=== PATIENT | female | born 1960 | race Hispanic/Latino ===

== ENCOUNTER 2017-11-10 21:28 | Emergency (ER) | payer OTHER ==
[~2017-11-10] VITALS: Ht 147.3 cm; Wt 77.1 kg
[2017-11-10] MEDS ORDERED: CEFTRIAXONE SOD 1 GM VIAL IV ONE (22:00)
[2017-11-10] MEDS ORDERED: ACETAMINOPHEN 325 MG TAB PO ONE (22:00)
[2017-11-10] MEDS ORDERED: SODIUM CHLORIDE 0.9% 1000ML 1,000 ML IV ONE (22:00)
[2017-11-10 22:28] LABS: BASOPHILS % 0.3 % (0.0-1.0); EOSINOPHILS % 0.3 % (0.0-6.0); HEMATOCRIT 32.2 % (34.2-44.1); HEMOGLOBIN 10.8 g/dL (12.0-16.0); LYMPHOCYTES # (AUTO) 0.6 (1.0-3.2); LYMPHOCYTES % 8.2 % (18.0-39.1); MEAN CORPUSCULAR HEMOGLOBIN 28.2 pg (28-32); MEAN CORPUSCULAR HGB CONC 33.5 g/dL (31-35); MEAN CORPUSCULAR VOLUME 84.1 fL (81-99); MONOCYTES # (AUTO) 0.5 (0.2-0.8); MONOCYTES % 6.6 % (4.4-11.3); NEUTROPHILS # (AUTO) 6.5 (2.1-6.9); PLATELET COUNT 173 x10e3/uL (140-360); RED BLOOD COUNT 3.83 x10e6/uL (3.6-5.1); RED CELL DISTRIBUTION WIDTH 14.1 % (11.7-14.4)
[2017-11-10 22:34] LABS: BILIRUBIN,URINE 1+ (NEGATIVE); CLARITY,URINE HAZY (CLEAR); COLOR,URINE YELLOW (YELLOW); KETONES,URINE NEGATIVE (NEGATIVE); LEUKOCYTE ESTERASE ,URINE 1+ (NEGATIVE); URINE UROBILINOGEN 0.2 mg/dL (0.2 - 1)
[2017-11-10 22:36] LABS: NITRITE,URINE POSITIVE (NEGATIVE); PROTEIN,URINE DIPSTICK TRACE (NEGATIVE)
--- NOTE | 2017-11-10 22:48 | Diagnostic Imaging Report ---
CHEST SINGLE (NOT PORTABLE), 11/10/2017 9:59 PM Technique: CHEST SINGLE (NOT PORTABLE) Comparison: None available. Clinical history: Fever, cough Findings: Cardiomediastinal silhouette likely normal for technique. No consolidation or edema. No effusion or pneumothorax. Impression: 1. Lines/Tubes: None 2. No acute abnormality. Signed by: Dr Mima Silvestre MD on 11/10/2017 10:45 PM
[2017-11-10 22:55] LABS: BACTERIA,URINE MANY /HPF; EPITHELIAL CELLS,URINE RARE /LPF; RBC,URINE 0-5 /HPF (0-5); WBC,URINE (MAN) >50 /HPF (0-5)
[2017-11-10 22:57] LABS: ALBUMIN 3.5 g/dL (3.5-5.0); ALBUMIN/GLOBULIN RATIO 0.9 (0.8-2.0); ANION GAP 15.1 mmol/L (8-16); CALCIUM 9.3 mg/dL (8.4-10.2); CREATININE, SERUM 1.31 mg/dL (0.57-1.11); POTASSIUM 4.1 mmol/L (3.5-5.1)
[2017-11-11 00:20] VITALS: BP 131/57
[2017-11-12] MEDS ORDERED: NOVOLOG100 UNIT/1 SC (23:40)
[2017-11-12] MEDS ORDERED: METFORMIN HCL500 M2 PO (23:52)
[2017-11-12] MEDS ORDERED: GLIPIZIDE5 MG PO (23:57)
[2017-11-12] MEDS ORDERED: LOSARTAN-HCTZ1 EAC1 PO (23:57)
[2017-11-12] MEDS ORDERED: ATORVASTATIN CA20 MG PO (23:57)
[2017-11-12] MEDS ORDERED: GABAPENTIN300 MG PO (23:57)
[2017-11-12] MEDS ORDERED: OXYBUTYNIN CHLOR5 MG PO (23:57)
[2017-11-12] MEDS ORDERED: METOPROLOL SUCC50 MG PO (23:57)
[2017-11-12] MEDS ORDERED: AMLODIPINE BES2.5 MG PO (23:59)
== END 2017-11-11 01:08 | disposition home or self-care (01) ==
LOC: ER 21:28
DX: R50.9 Fever, unspecified (principal); R05 Cough; N30.90 Cystitis, unspecified without hematuria; I10 Essential (primary) hypertension; E11.9 Type 2 diabetes mellitus without complications
CPT/HCPCS: 36415; 71045; 80053; 81001; 83605; 85025; 87040; 87086; 87186; 99284; J0696; J7030

== ENCOUNTER 2017-11-12 14:27 | Inpatient (IN) | payer OTHER ==
[~2017-11-12] VITALS: Ht 147.3 cm; Wt 78.1 kg
--- OUTSIDE RECORDS SUMMARY | 2017-11-12 14:30 | XMS REPORT ---
[facility] Address Unknown Phone Unavailable Care Team Providers Care Adult Basic Education Manager Name Role Phone YUSUF ROSE Unavailable Unavailable Problems This patient has no known problems. Allergies, Adverse Reactions, Alerts This patient has no known allergies or adverse reactions. Medications This patient has no known medications. Results Test Description Test Time Test Comments Text Results Atomic Results Result Comments CHEST SINGLE (NOT PORTABLE) [place] [address] Patient Name: MENA HARDING MR #: [id number] : 1960 Age/Sex: 57/F Req #: [id number] Adm Physician: Ordered by: YUSUF ROSE MD Report #: [id number] Location: ER Room/Bed: ___ Procedure: [id number] DX/CHEST SINGLE (NOT PORTABLE) Exam Date: 11/10/17 Exam Time: 2202 REPORT STATUS: Signed CHEST SINGLE (NOT PORTABLE), 11/10/2017 9:59 PM Technique: CHEST SINGLE ( NOT PORTABLE) Comparison: None available. Clinical history: Fever, cough Findings: Cardiomediastinal silhouette likely normal for technique. No consolidation or edema. No effusion or pneumothorax. Impression: 1. Lines/Tubes: None 2. No acute abnormality. Signed by: Dr Prasad Silvestre MD on 11/10/2017 10:45 PM Dictated By: PRASAD SILVESTRE MD 44 Transcribed By: JUNE on 11/10 COPY TO: YUSUF ROSE MD
--- OUTSIDE RECORDS SUMMARY | 2017-11-12 14:30 | XMS REPORT | Clinical Summary ---
Author Author [facility] Organization [facility] Address Unknown Phone Unavailable Care Team Providers Care Umbrella Supervisor Name Role Phone PCP Unavailable Allergies Active Allergy Reactions Severity Noted Date Comments Codeine Nausea Only, Other (See 03/25/2016 " over sedated" Comments) Current Medications Prescription Sig. Disp. Refills Start End Date Status Date atorvastatin (LIPITOR) 40 Take 40 mg by mouth Active MG tablet daily. glipiZIDE (GLUCOTROL) 5 Take 5 mg by mouth 2 Active MG tablet (two) times daily before meals. metFORMIN (GLUCOPHAGE) Take 1,000 mg by mouth 2 Active 1000 MG tablet (two) times daily with breakfast and dinner. fenofibrate (TRICOR) 48 Take 48 mg by mouth Active MG tablet daily. amLODIPine (NORVASC) 2.5 Take 2.5 mg by mouth Active MG tablet daily. metoprolol (TOPROL-XL) 50 Take 50 mg by mouth Active MG 24 hr tablet daily. losartan-hydrochlorothiaz Take 1 tablet by mouth Active etta (HYZAAR) 100-25 mg daily. per tablet traMADol (ULTRAM) 50 mg Take 50 mg by mouth every Active tablet 6 (six) hours as needed for Pain. ibuprofen (ADVIL,MOTRIN) Take 600 mg by mouth Active 600 MG tablet every 6 (six) hours as needed for Pain. naproxen (NAPROSYN) 500 Take 500 mg by mouth 2 Active MG tablet (two) times daily with breakfast and dinner. sertraline (ZOLOFT) 50 MG Take 50 mg by mouth Active tablet daily. famotidine (PEPCID) 40 MG Take 40 mg by mouth Active tablet daily. insulin glargine (LANTUS) Inject 85 Units Active 100 unit/mL injection subcutaneously nightly Use as directed . dicyclomine (BENTYL) 20 Take 1 tablet (20 mg 20 tablet 0 03/26/20 mg tablet total) by mouth 2 (two) 16 17 times daily. Active Problems Not on file Social History Tobacco Use Types Packs/Day Years Used Date Never Smoker Alcohol Use Drinks/Week oz/Week Comments No Sex Assigned at Date Recorded Not on file Last Filed Vital Signs Not on file Plan of Treatment Not on file Results Not on fileafter 11/11/2016
--- OUTSIDE RECORDS SUMMARY | 2017-11-12 14:30 | XMS REPORT | Continuity of Care Document ---
Author Author [facility] Organization [facility] Address [address] [place] [address] Phone Unavailable Care Team Providers Care Pediatric Critical Care Nurse Name Role Phone TERESO KELLY MD PCP Insurance Providers Guarantor Karo Sanchez Address [address] [place] [address] [facility] Policy Number [id number] Subscriber's Name Karo Sanchez Relationship 18 Self / Same As Patient Advance Directives Directive Response Recorded Date/Time Does the patient have an advance directive? No 11/10/17 10:27pm If yes, is advance directive on file with [facility]? No 11/10/17 10:27pm If not on file with [facility] will patient provide a copy? No 11/10/17 10:27pm Do you have a Directive to Physician? No 11/10/17 10:27pm Do you have a Medical Power of Vocational Ed Instructor? No 11/10/17 10:27pm Do you have an out of hospital Do Not Resuscitate Order? No 11/10/17 10:27pm Do you have any special needs we should be aware of? No 11/10/17 10:27pm Do you have a support person here with you today? Yes 11/10/17 10:27pm Did patient receive Notice of Privacy Practices? Yes 11/10/17 10:27pm Did patient receive patient rights and responsibilities? Yes 11/10/17 10:27pm Problems No problem information available. Medications No medication information available. Social History No social history information available. Hospital Discharge Instructions No hospital discharge instruction information available. Plan of Care Discharge Date 11/11/17 1:08am Disposition HOME, SELF-CARE Condition at Discharge Stable Instructions/Education Provided Fever - Adult Urinary Tract Infection - Women Prescriptions See Medication Section Referrals TERESO KELLY MD Address: [address] [place] [address] [address] [place], [place] [id number] Additional Instructions/Education REST; DRINK PLENTY OF FLUIDS; FOLLOW UP WITH YOUR PCP; TAKE MEDICATIONS PRESCRIBED; Functional Status No functional status information available. Allergies, Adverse Reactions, Alerts Allergen Type Severity Reaction Status Last Updated Codeine Allergy Unknown Active 11/10/17 Immunizations No immunization information available. Vital Signs Acute Vital Signs Vital Response Date/Time Pulse Pulse Rate (adult) 90 bpm (60 - 90) 11/11/2017 12:20am Respiratory Rate 16 bpm (12 - 24) 11/11/2017 12:20am Blood Pressure 131/57 mm Hg 11/11/2017 12:20am Height 4 ft 10 in 11/10/2017 9:56pm Weight 170 lb 11/10/2017 9:56pm Body Mass Index 35.5 kg/m^2 11/10/2017 9:56pm Results Laboratory Results Test Name Result Units Flags Reference Collection Date/Time Result Date/ Time Comments White Blood Count 7.72 x10e3/uL 4.8-10.8 11/10/2017 10:00pm 11/10/2017 10:28pm Red Blood Count 3.83 x10e6/uL 3.6-5.1 11/10/2017 10:00pm 11/10/2017 10: 28pm Hemoglobin 10.8 g/dL L 12.0-16.0 11/10/2017 10:00pm 11/10/2017 10:28pm Hematocrit 32.2 % L 34.2-44.1 11/10/2017 10:00pm 11/10/2017 10:28pm Mean Corpuscular Volume 84.1 fL 81-99 11/10/2017 10:00pm 11/10/2017 10: 28pm Mean Corpuscular Hemoglobin 28.2 pg 28-32 11/10/2017 10:00pm 2017 10:28pm Mean Corpuscular Hemoglobin Concent 33.5 g/dL 31-35 11/10/2017 10:00pm 11/10/2017 10:28pm Red Cell Distribution Width 14.1 % 11.7-14.4 11/10/2017 10:00pm 2017 10:28pm Platelet Count 173 x10e3/uL 140-360 11/10/2017 10:00pm 11/10/2017 10: 28pm Neutrophils (%) (Auto) 84.0 % H 38.7-80.0 11/10/2017 10:00pm 11/10/2017 10:28pm Lymphocytes (%) (Auto) 8.2 % L 18.0-39.1 11/10/2017 10:00pm 11/10/2017 10:28pm Monocytes (%) (Auto) 6.6 % 4.4-11.3 11/10/2017 10:00pm 11/10/2017 10: 28pm Eosinophils (%) (Auto) 0.3 % 0.0-6.0 11/10/2017 10:00pm 11/10/2017 10: 28pm Basophils (%) (Auto) 0.3 % 0.0-1.0 11/10/2017 10:00pm 11/10/2017 10: 28pm IM GRANULOCYTES % 0.6 % 0.0-1.0 11/10/2017 10:00pm 11/10/2017 10:28pm Neutrophils # (Auto) 6.5 2.1-6.9 11/10/2017 10:00pm 11/10/2017 10: 28pm Lymphocytes # (Auto) 0.6 L 1.0-3.2 11/10/2017 10:00pm 11/10/2017 10: 28pm Monocytes # (Auto) 0.5 0.2-0.8 11/10/2017 10:00pm 11/10/2017 10:28pm Eosinophils # (Auto) 0.0 0.0-0.4 11/10/2017 10:00pm 11/10/2017 10: 28pm Basophils # (Auto) 0.0 0.0-0.1 11/10/2017 10:00pm 11/10/2017 10:28pm Absolute Immature Granulocyte (auto 0.05 x10e3/uL 0-0.1 11/10/2017 10: 00pm 11/10/2017 10:28pm Urine Color YELLOW YELLOW 11/10/2017 10:00pm 11/10/2017 10:36pm Urine Clarity HAZY CLEAR 11/10/2017 10:00pm 11/10/2017 10:36pm Urine Specific [place] 1.015 1.010-1.025 11/10/2017 10:00pm 2017 10:36pm Urine pH 5 5 - 7 11/10/2017 10:00pm 11/10/2017 10:36pm Urine Leukocyte Esterase 1+ H NEGATIVE 11/10/2017 10:00pm 11/10/2017 10:36pm Urine Nitrite POSITIVE H NEGATIVE 11/10/2017 10:00pm 11/10/2017 10: 36pm Urine Protein TRACE H NEGATIVE 11/10/2017 10:00pm 11/10/2017 10:36pm Urine Glucose (UA) 2+ H NEGATIVE 11/10/2017 10:00pm 11/10/2017 10: 36pm Urine Ketones NEGATIVE NEGATIVE 11/10/2017 10:00pm 11/10/2017 10: 36pm Urine Urobilinogen 0.2 mg/dL 0.2 - 1 11/10/2017 10:00pm 11/10/2017 10: 36pm Urine Bilirubin 1+ H NEGATIVE 11/10/2017 10:00pm 11/10/2017 10:36pm Urine Blood 1+ H NEGATIVE 11/10/2017 10:00pm 11/10/2017 10:36pm Urine WBC >50 /HPF H 0-5 11/10/2017 10:00pm 11/10/2017 10:55pm Urine RBC 0-5 /HPF 0-5 11/10/2017 10:00pm 11/10/2017 10:55pm Urine Bacteria MANY /HPF H NONE 11/10/2017 10:00pm 11/10/2017 10:55pm Urine Epithelial Cells RARE /LPF NONE 11/10/2017 10:00pm 11/10/2017 10: 55pm Sodium Level 138 mmol/L 136-145 11/10/2017 10:00pm 11/10/2017 11:02pm Potassium Level 4.1 mmol/L 3.5-5.1 11/10/2017 10:00pm 11/10/2017 11: 02pm Chloride Level 103 mmol/L 98-107 11/10/2017 10:00pm 11/10/2017 11:02pm Carbon Dioxide Level 24 mmol/L 22-29 11/10/2017 10:00pm 11/10/2017 11: 02pm Anion Gap 15.1 mmol/L 8-16 11/10/2017 10:00pm 11/10/2017 11:02pm Blood Urea Nitrogen 20 mg/dL 7-11/10/2017 10:00pm 11/10/2017 11: 02pm Creatinine 1.31 mg/dL H 0.57-1.11 11/10/2017 10:00pm 11/10/2017 11:02pm BUN/Creatinine Ratio 15 6-11/10/2017 10:00pm 11/10/2017 11:02pm Estimat Glomerular Filtration Rate 42 ML/MIN L 60- 11/10/2017 10:00pm 11:02pm Ranges were taken from the National Kidney Disease Education Program and the National Kid[employer] Foundation literature. Reference ranges: 60 or greater: Normal 16-59 (for 3 consecutive months): Chronic kidney disease 15 or less: Kidney failure Glucose Level 306 mg/dL H 74-118 11/10/2017 10:00pm 11/10/2017 11:02pm Calcium Level 9.3 mg/dL 8.4-10.2 11/10/2017 10:00pm 11/10/2017 11:02pm Lactic Acid Level 17.8 MG/DL 4.5-19.8 11/10/2017 10:00pm 11/10/2017 10: 55pm Total Bilirubin 0.7 mg/dL 0.2-1.2 11/10/2017 10:00pm 11/10/2017 11: 02pm Aspartate Amino Transf (AST/SGOT) 16 IU/L 5-34 11/10/2017 10:00pm 11/10 11:02pm Alanine Aminotransferase (ALT/SGPT) 20 IU/L 0-55 11/10/2017 10:00pm 11:02pm Total Protein 7.4 g/dL 6.5-8.1 11/10/2017 10:00pm 11/10/2017 11:02pm Albumin 3.5 g/dL 3.5-5.0 11/10/2017 10:00pm 11/10/2017 11:02pm Globulin 3.9 g/dL H 2.3-3.5 11/10/2017 10:00pm 11/10/2017 11:02pm Albumin/Globulin Ratio 0.9 0.8-2.0 11/10/2017 10:00pm 11/10/2017 11: 02pm Alkaline Phosphatase 71 IU/L 40-150 11/10/2017 10:00pm 11/10/2017 11: 02pm Procedures Procedure Status Date Provider(s) X-ray of chest, single view Active 11/10/17 YUSUF ROSE MD Encounters Encounter Location Arrival/Admit Date Discharge/Depart Date Attending Provider Departed Emergency Room [facility] 11/10/17 9:28pm 1:08am YUSUF ROSE MD
[2017-11-12] MEDS ORDERED: ACETAMINOPHEN 325 MG TAB PO ONE (15:00)
[2017-11-12] MEDS ORDERED: SODIUM CHLORIDE 0.9% 500ML 500 ML IV STA (15:33)
[2017-11-12] MEDS ORDERED: ONDANSETRON HCL INJ 2 MG/ML VIAL IV STA (15:33)
[2017-11-12 16:14] LABS: BILIRUBIN,URINE 3+ (NEGATIVE); CLARITY,URINE CLOUDY (CLEAR); KETONES,URINE NEGATIVE (NEGATIVE); LEUKOCYTE ESTERASE ,URINE NEGATIVE (NEGATIVE); URINE UROBILINOGEN 12 mg/dL (0.2 - 1)
[2017-11-12 16:15] LABS: COLOR,URINE ORANGE (YELLOW); NITRITE,URINE POSITIVE (NEGATIVE); PROTEIN,URINE DIPSTICK TRACE (NEGATIVE)
[2017-11-12 16:29] LABS: AMORPHOUS SEDIMENT,URINE FEW (FEW); BACTERIA,URINE MODERATE /HPF; EPITHELIAL CELLS,URINE MODERATE /LPF
[2017-11-12 17:43] LABS: BASOPHILS % 0.2 % (0.0-1.0); EOSINOPHILS % 0.3 % (0.0-6.0); HEMATOCRIT 34.9 % (34.2-44.1); HEMOGLOBIN 11.3 g/dL (12.0-16.0); LYMPHOCYTES # (AUTO) 2.6 (1.0-3.2); LYMPHOCYTES % 26.1 % (18.0-39.1); MEAN CORPUSCULAR HGB CONC 32.4 g/dL (31-35); MEAN CORPUSCULAR VOLUME 86.6 fL (81-99); MONOCYTES % 9.7 % (4.4-11.3); NEUTROPHILS # (AUTO) 6.4 (2.1-6.9); NEUTROPHILS % 63.3 % (38.7-80.0); PLATELET COUNT 231 x10e3/uL (140-360); RED BLOOD COUNT 4.03 x10e6/uL (3.6-5.1); RED CELL DISTRIBUTION WIDTH 14.3 % (11.7-14.4)
[2017-11-12 17:51] LABS: INR 1.1; PARTIAL THROMBOPLASTIN TIME 33.2 seconds (23.8-35.5); PROTHROMBIN TIME 13.4 seconds (11.9-14.5)
[2017-11-12 17:58] LABS: ALANINE AMINOTRANSFERASE 36 IU/L (0-55); ALBUMIN 3.4 g/dL (3.5-5.0); ALBUMIN/GLOBULIN RATIO 0.7 (0.8-2.0); ALKALINE PHOSPHATASE 69 IU/L (40-150); ANION GAP 15.5 mmol/L (8-16); BLOOD UREA NITROGEN 21 mg/dL (7-26); BUN/CREATININE RATIO 14 (6-25); CALCIUM 9.9 mg/dL (8.4-10.2); CARBON DIOXIDE 27 mmol/L (22-29); CHLORIDE 103 mmol/L (98-107); CREATINE KINASE 82 IU/L (29-168); CREATININE, SERUM 1.51 mg/dL (0.57-1.11); EST GLOMERULAR FILTRATION RATE 35 ML/MIN (60-); GLUCOSE 66 mg/dL (74-118); MAGNESIUM 1.5 MG/DL (1.3-2.1); POTASSIUM 3.5 mmol/L (3.5-5.1); SODIUM 142 mmol/L (136-145)
[2017-11-12] MEDS ORDERED: DEXTROSE 50% SYRINGE 50 ML IV PRN (20:15)
[2017-11-12] MEDS ORDERED: ONDANSETRON HCL INJ 2 MG/ML VIAL IV PRN (20:15)
[2017-11-12] MEDS ORDERED: SODIUM CHLORIDE 0.9% 1000ML 1,000 ML IV ONE (20:15)
[2017-11-12] MEDS ORDERED: ACETAMINOPHEN 325 MG TAB PO PRN (20:15)
[2017-11-12] MEDS ORDERED: ACETAMINOPHEN 325 MG TAB ONE (20:18)
[2017-11-12] MEDS ORDERED: ONDANSETRON HCL INJ 2 MG/ML VIAL ONE (20:19)
--- OUTSIDE RECORDS SUMMARY | 2017-11-12 21:02 | XMS REPORT | Clinical Summary ---
Author Author [facility] Organization [facility] Address Unknown Phone Unavailable Care Team Providers Care Follow Up Specialist Name Role Phone PCP Unavailable Allergies Active [...]
[2017-11-12 21:08] VITALS: BP 109/58
[2017-11-12 22:27] VITALS: BP 109/58
[2017-11-12] MEDS: SODIUM CHLORIDE 0.9% 1000ML 1,000 ML IV SCH (23:20)
[2017-11-12] MEDS: CEFEPIME HCL 1 GM VIAL IV SCH (23:20)
[2017-11-12] MEDS: INSULIN REGULAR, HUMAN 100 UNIT/1 ML 3ML VIAL SQ SCH (23:33)
[2017-11-12] MEDS ORDERED: NOVOLOG100 UNIT/1 SC (23:40)
[2017-11-12] MEDS ORDERED: METFORMIN HCL500 M2 PO (23:52)
[2017-11-12] MEDS ORDERED: ATORVASTATIN CA20 MG PO (23:57)
[2017-11-12] MEDS ORDERED: LOSARTAN-HCTZ1 EAC1 PO (23:57)
[2017-11-12] MEDS ORDERED: METOPROLOL SUCC50 MG PO (23:57)
[2017-11-12] MEDS ORDERED: OXYBUTYNIN CHLOR5 MG PO (23:57)
[2017-11-12] MEDS ORDERED: GLIPIZIDE5 MG PO (23:57)
[2017-11-12] MEDS ORDERED: GABAPENTIN300 MG PO (23:57)
[2017-11-12] MEDS ORDERED: AMLODIPINE BES2.5 MG PO (23:59)
[2017-11-13] MEDS ORDERED: OMEPRAZOLE10 MG (00:46)
[2017-11-13 00:50] VITALS: BP 166/52
[2017-11-13 04:00] VITALS: BP 94/52
[2017-11-13] MEDS: CEFEPIME HCL 1 GM VIAL IV SCH ×3 (05:24→21:28)
[2017-11-13 06:56] LABS: BASOPHILS % 0.2 % (0.0-1.0); EOSINOPHILS # (AUTO) 0.1 (0.0-0.4); EOSINOPHILS % 1.3 % (0.0-6.0); HEMATOCRIT 27.8 % (34.2-44.1); HEMOGLOBIN 8.9 g/dL (12.0-16.0); LYMPHOCYTES # (AUTO) 1.5 (1.0-3.2); LYMPHOCYTES % 30.8 % (18.0-39.1); MEAN CORPUSCULAR VOLUME 87.4 fL (81-99); MONOCYTES # (AUTO) 0.5 (0.2-0.8); MONOCYTES % 10.8 % (4.4-11.3); NEUTROPHILS # (AUTO) 2.7 (2.1-6.9); NEUTROPHILS % 56.5 % (38.7-80.0); PLATELET COUNT 169 x10e3/uL (140-360); RED BLOOD COUNT 3.18 x10e6/uL (3.6-5.1); RED CELL DISTRIBUTION WIDTH 14.6 % (11.7-14.4)
[2017-11-13] MEDS: SODIUM CHLORIDE 0.9% 1000ML 1,000 ML IV SCH ×7 (07:00→15:00)
[2017-11-13 07:30] LABS: ALBUMIN 2.5 g/dL (3.5-5.0); ALBUMIN/GLOBULIN RATIO 0.7 (0.8-2.0); ANION GAP 9.5 mmol/L (8-16); CREATININE, SERUM 1.37 mg/dL (0.57-1.11); POTASSIUM 4.5 mmol/L (3.5-5.1)
[2017-11-13 07:32] LABS: CALCIUM 8.4 mg/dL (8.4-10.2)
[2017-11-13 07:56] LABS: CHOL/HDL RATIO 4.2 (3.0-3.6)
[2017-11-13] MEDS: FAMOTIDINE 20 MG TAB PO SCH ×2 (08:15→16:54)
[2017-11-13 08:29] VITALS: BP 122/58
--- NOTE | 2017-11-13 08:49 | History and Physical ---
PRIMARY CARE PHYSICIAN: Dr. Jasiel Rodríguez CHIEF COMPLAINT: Burning on urination and trace blood in the urine. HISTORY OF PRESENT ILLNESS: This is a 57-year-old woman with a history of diabetes mellitus, type 2, now developing burning on urination with some traces of blood in the urine. Therefore, she came to the hospital. Here she was found to be septic. She was admitted for further evaluation and management. PAST MEDICAL HISTORY: Diabetes mellitus, type 2. PAST SURGICAL HISTORY: Hysterectomy. ALLERGIES: PER ELECTRONIC MEDICAL RECORD. FAMILY HISTORY/SOCIAL HISTORY: The patient is . She has 3 children. No alcohol, illicits or cigarettes. MEDICATIONS: Per electronic medical record. REVIEW OF SYSTEMS: Denies any dizziness or chest pain. PHYSICAL EXAMINATION VITAL SIGNS: Reviewed. T-max is 101, blood pressure as low as 109/58. GENERAL: A tired-appearing woman resting in bed. HEENT: Anicteric. Pupils respond to light. No oral lesions. CARDIOVASCULAR: Normal S1 and S2. LUNGS: Moderate breath sounds. ABDOMEN: Soft, nontender and nondistended. EXTREMITIES: No edema or calf tenderness. NEUROLOGICAL: Alert and oriented times 3. Moving all extremities. SKIN: Dry. PSYCHIATRIC: Flat affect. LABS: Reviewed. MEDICATIONS: Reviewed. ASSESSMENT AND PLAN: A 57-year-old woman with: 1. Severe sepsis with acute kidney injury: Continue cefepime and follow up cultures. 2. Acute kidney injury: Rehydrate. Bolus fluids. 3. Urinary tract infection: Continue cefepime. 4. Diabetes mellitus, type 2: Obtain hemoglobin A1c and lipid panel. 5. Obesity: Body mass index is 35.5. Needs caloric restriction outpatient. 6. Normocytic anemia: Mild to moderate. Will follow. 7. Diabetic neuropathy: Continue gabapentin. 8. Prophylaxis: Will use Pepcid and sequential compression devices. 9. Disposition: Discontinue metoprolol. Follow up cultures. Job#: [id number] RI
[2017-11-13] MEDS ORDERED: METOPROLOL SUCCINATE 50 MG TAB XL PO SCH (09:00)
[2017-11-13] MEDS: GABAPENTIN 300 MG CAP PO SCH ×2 (09:34→16:54)
[2017-11-13] MEDS: INSULIN LISPRO 100 UNIT/1 ML 3ML VIAL SQ SCH ×2 (09:36→16:54)
[2017-11-13] MEDS: INSULIN REGULAR, HUMAN 100 UNIT/1 ML 3ML VIAL SQ SCH ×4 (09:36→21:00)
[2017-11-13 12:31] VITALS: BP 129/73
[2017-11-13 16:00] VITALS: BP 151/71
[2017-11-13 20:00] VITALS: BP 142/63
[2017-11-13] MEDS: ATORVASTATIN 40 MG TAB PO SCH (21:00)
[2017-11-14] VITALS: BP 147/67
[2017-11-14] MEDS: SODIUM CHLORIDE 0.9% 1000ML 1,000 ML IV SCH ×3 (00:30→13:01)
[2017-11-14 04:00] VITALS: BP 152/76
[2017-11-14] MEDS: INSULIN REGULAR, HUMAN 100 UNIT/1 ML 3ML VIAL SQ SCH ×4 (07:30→20:56)
[2017-11-14 07:50] VITALS: BP 177/97
[2017-11-14] MEDS: FAMOTIDINE 20 MG TAB PO SCH ×2 (08:00→16:13)
[2017-11-14] MEDS: CEFEPIME HCL 1 GM VIAL IV SCH ×3 (08:30→22:00)
[2017-11-14] MEDS: INSULIN LISPRO 100 UNIT/1 ML 3ML VIAL SQ SCH ×2 (09:00→16:54)
[2017-11-14] MEDS: GABAPENTIN 300 MG CAP PO SCH ×2 (09:20→16:54)
[2017-11-14] MEDS: METOPROLOL SUCCINATE 50 MG TAB XL PO SCH (11:22)
[2017-11-14 11:31] VITALS: BP 151/66
[2017-11-14 16:00] VITALS: BP 155/82
--- NOTE | 2017-11-14 18:59 | Progress Note ---
DATE: November 14, 2017 TIME: 1730 SUBJECTIVE: No acute events overnight. The patient denies headache, nausea, vomiting, diarrhea, chest pain or shortness of breath. The patient with complaint of dysuria and lower back pain. OBJECTIVE VITAL SIGNS: T 97.4, P 74, R 18, BP 151/66, pulse ox 96%. GENERAL APPEARANCE: This is a tired-appearing elderly female lying supine in bed. HEENT: Normocephalic, PERRLA, oral mucosa moist and intact, trachea midline. CARDIOVASCULAR: Distant S1 and S2 appreciated with regular rate and rhythm. LUNGS: Moderate breath sounds in bilateral lower salcedo. ABDOMEN: Soft, nontender and slightly distended. EXTREMITIES: No edema or calf tenderness and without clubbing. NEUROLOGIC: Alert and oriented x3 and moves all 3 extremities on command. SKIN: Dry. PSYCHIATRIC: Flat affect. LABORATORY DATA: Previous labs on 11/13 sodium 139, K 4.5, chloride 0.9, CO2 of 25, gap at 9.5 and BUN of 24. Creatinine elevated at 1.39. GFR of 39. Point of care glucose max at 353. Albumin low at 6.1. Lipid panel final TG at 190, cholesterol 126, LDL 58, HDL 30. Urines on admission reviewed with negative urine leukocyte esterase. Blood counts on the reviewed with a WBC at that time of 4.71. Hemoglobin and hematocrit at 8.9 and 27.8 respectively and platelets 169,000. MEDICATIONS: The patient receiving Humulin Lispro 40 units subcu b.i.d. in addition to regular Humulin sliding scale, gabapentin 300 p.o. b.i.d., Pepcid 20 mg b.i.d. a.c. meals, cefepime 1 gram q.8 h., normal saline at 125 an hour, metoprolol 50 mg p.o. daily, Lipitor 40 mg p.o. nightly, p.r.n. Tylenol and Zofran noted on OCT. ASSESSMENT AND PLAN: This is a 57-year-old woman with: 1. Severe sepsis with acute kidney injury. Continue cefepime as above. All cultures returned negative; however, the patient continues with complaint of dysuria. 2. Acute kidney injury. Continue rehydration and monitor labs in a.m. 3. Urinary tract infection. Cefepime as above. 4. Diabetes mellitus type 2. Hemoglobin A1c 9.1 and lipid panel indicates poor control. A lengthy discussion at bedside with the patient and family concerning medication regimen and diet. 5. Obesity. BMI 35.5. Outpatient caloric restriction. 6. Normocytic anemia, mild to moderate. Will follow up in the a.m. 7. Diabetic neuropathy. Gabapentin b.i.d. as above. 8. Prophylaxis: Pepcid, SCDs, encouraged the patient to ambulate. 9. Disposition: Metoprolol resumed today for notably increased blood pressure this a.m. Cultures negative; however, the patient continues to complain. May need outpatient followup with urology, as the family indicated the patient had previous oxybutynin for diagnosis of overactive bladder. Additionally, the patient and family indicate that diet and medication regimen are difficult to follow. We will obtain a.m. labs in the morning. DICTATED BY: Akiko Roblero NP Job#: [id number] GH
[2017-11-14 20:00] VITALS: BP 152/70
[2017-11-14] MEDS: ATORVASTATIN 40 MG TAB PO SCH (21:00)
[2017-11-15] VITALS: BP 118/57
[2017-11-15] MEDS: SODIUM CHLORIDE 0.9% 1000ML 1,000 ML IV SCH ×2 (02:00→10:30)
[2017-11-15 04:00] VITALS: BP 183/84
[2017-11-15] MEDS: CEFEPIME HCL 1 GM VIAL IV SCH ×2 (05:50→13:28)
[2017-11-15] MEDS: INSULIN REGULAR, HUMAN 100 UNIT/1 ML 3ML VIAL SQ SCH ×2 (07:30→11:30)
[2017-11-15 08:00] VITALS: BP 151/67
[2017-11-15 08:23] LABS: BASOPHILS % 0.2 % (0.0-1.0); EOSINOPHILS # (AUTO) 0.1 (0.0-0.4); EOSINOPHILS % 2.4 % (0.0-6.0); HEMATOCRIT 28.8 % (34.2-44.1); HEMOGLOBIN 9.5 g/dL (12.0-16.0); LYMPHOCYTES % 24.3 % (18.0-39.1); MEAN CORPUSCULAR HEMOGLOBIN 28.4 pg (28-32); MONOCYTES # (AUTO) 0.4 (0.2-0.8); NEUTROPHILS # (AUTO) 2.6 (2.1-6.9); NEUTROPHILS % 62.9 % (38.7-80.0); PLATELET COUNT 204 x10e3/uL (140-360); RED BLOOD COUNT 3.35 x10e6/uL (3.6-5.1); RED CELL DISTRIBUTION WIDTH 14.1 % (11.7-14.4)
[2017-11-15 09:00] LABS: ALANINE AMINOTRANSFERASE 30 IU/L (0-55); ALBUMIN 2.7 g/dL (3.5-5.0); ALBUMIN/GLOBULIN RATIO 0.7 (0.8-2.0); ALKALINE PHOSPHATASE 70 IU/L (40-150); ANION GAP 11.3 mmol/L (8-16); BLOOD UREA NITROGEN 12 mg/dL (7-26); BUN/CREATININE RATIO 13 (6-25); CALCIUM 8.7 mg/dL (8.4-10.2); CARBON DIOXIDE 25 mmol/L (22-29); CHLORIDE 105 mmol/L (98-107); CREATININE, SERUM 0.91 mg/dL (0.57-1.11); EST GLOMERULAR FILTRATION RATE > 60 ML/MIN (60-); GLUCOSE 197 mg/dL (74-118); POTASSIUM 4.3 mmol/L (3.5-5.1); SODIUM 137 mmol/L (136-145)
[2017-11-15] MEDS ORDERED: NIFEDIPINE CR 30 MG TAB PO SCH (09:00)
[2017-11-15] MEDS: GABAPENTIN 300 MG CAP PO SCH (09:35)
[2017-11-15] MEDS: FAMOTIDINE 20 MG TAB PO SCH (09:35)
[2017-11-15] MEDS: INSULIN LISPRO 100 UNIT/1 ML 3ML VIAL SQ SCH (09:38)
[2017-11-15] MEDS: METOPROLOL SUCCINATE 50 MG TAB XL PO SCH (09:38)
[2017-11-15 12:00] VITALS: BP 149/71
[2017-11-15 14:43] LABS: BAND NEUTROPHILS % (MANUAL) 7 %; EOSINOPHILS % (MANUAL) 1 % (0-7); LYMPHOCYTES % (MANUAL) 22 % (19-48); MONOCYTES % (MANUAL) 7 % (3.4-9.0); NEUTROPHILS % (MANUAL) 63 % (40-74); PLATELET ESTIMATE ADEQUATE; PLATELET MORPHOLOGY COMMENT NORMAL; RBC MORPHOLOGY COMMENT NORMAL
[2017-11-15 16:00] VITALS: BP 132/69
[2017-11-15] MEDS ORDERED: BACTRIM DS TAB1 EACH PO (17:04)
--- NOTE | 2017-11-15 19:41 | Discharge Summary ---
PRINCIPAL DIAGNOSES 1. Fever. 2. Pyelonephritis. 3. Severe sepsis with acute kidney injury. 4. Urinary tract infection. 5. Normocytic anemia. SECONDARY DIAGNOSES: Diabetes mellitus type 2, obesity, diabetic neuropathy, hypertension. CHIEF COMPLAINT: The patient complained with burning on urination and some traces of blood. HISTORY OF PRESENT ILLNESS: This is a 57-year-old woman who presented to [facility] on the where she was evaluated and treated, and subsequently allowed to go home. The patient's symptoms returned the next day and the patient started treatment on the 12 of November at [facility] with complaint of dysuria, confusion. Duration was ongoing without any alleviating or aggravating factors. HOSPITAL COURSE: On November 12, the patient was admitted after having been found with severe sepsis and acute kidney injury and was provided with IV fluids. On day 2, cultures were still pending and there was some improvement in renal function. However, the patient continued to complain of dysuria. On day 3, November 14, 2017, the patient complained of only slight dysuria and cultures returned negative. However, renal function was still slightly impaired. On day 4, November 15, renal function has returned to normal. The patient is able to consume all p.o. meds and fluids, and is without any complaint or concern at this time. Consequently, the patient is being discharged home on this day. DISCHARGE MEDICATIONS: We will resume all home medications per the patient and add a written prescription for Bactrim DS one tablet p.o. b.i.d. x7 days for DX pyelonephritis. FOLLOWUP INSTRUCTIONS: The patient has been instructed to notify primary care physician, Dr. Jasiel Rodríguez, tomorrow of recent hospitalization to obtain an appointment within 7-10 days. Additionally, the patient was instructed to maintain blood pressure and finger stick glucose log for assistance for primary care physician and continue p.o. fluids. Additionally, the patient and family discussed ongoing urologic evaluation for urinary frequent at night. This will be continued to follow up outpatient with the patient's own urologist. CONDITION ON DISCHARGE: Stable. The patient will leave facility with family. No concerns or complaints were provided by the patient on this day. DICTATED BY: Akiko Roblero NP SILVER CREWS MD Job#: [id number] GH
== END 2017-11-15 17:42 | disposition home or self-care (01) | DRG 872 ==
LOC: ER 14:27 → MED/SURG3 21:00
PROVIDERS: ADMIT Internal Medicine; ATTEND Internal Medicine
DX: A41.9 Sepsis, unspecified organism (principal); N17.9 Acute kidney failure, unspecified; E11.40 Type 2 diabetes mellitus with diabetic neuropathy, unspecified; N32.81 Overactive bladder; N12 Tubulo-interstitial nephritis, not specified as acute or chronic; D64.9 Anemia, unspecified; R65.20 Severe sepsis without septic shock; E66.9 Obesity, unspecified; Z68.35 Body mass index [BMI] 35.0-35.9, adult; Z79.4 Long term (current) use of insulin
CPT/HCPCS: 36415; 80053; 80061; 81001; 82550; 82553; 82948; 83036; 83605; 83735; 84484; 85025; 85610; 85730; 87040; 87086; J0692; J2405; J7030

== ENCOUNTER 2019-03-29 20:19 | Emergency (ER) | payer OTHER ==
[~2019-03-29] VITALS: Ht 147.3 cm; Wt 78.0 kg
[~2019-03-29 20:19] MED LIST: AMLODIPINE BES2.5 MG PO; ATORVASTATIN CA20 MG PO; BACTRIM DS TAB1 EACH PO; GABAPENTIN300 MG PO; GLIPIZIDE5 MG PO; LOSARTAN-HCTZ1 EAC1 PO; METFORMIN HCL500 M2 PO; METOPROLOL SUCC50 MG PO; NOVOLOG100 UNIT/1 SC; OMEPRAZOLE10 MG; OXYBUTYNIN CHLOR5 MG PO
--- OUTSIDE RECORDS SUMMARY | 2019-03-29 20:22 | XMS REPORT | Clinical Summary ---
Author Author [facility] Organization [facility] Address Unknown Phone Unavailable Care Team Providers Care Injection Molding Supervisor Name Role Phone Paolo Shanks PCP Allergies Comments Active Allergy Reactions Severity Noted Date " over sedated" Codeine Nausea Only, 03/25/2016 Other (See Comments) Medications End Date Status Medication Sig Dispensed Refills Start Date Active atorvastatin (LIPITOR) 40 Take 80 mg by 0 MG tablet mouth daily . Active glipiZIDE (GLUCOTROL) 5 Take 5 mg by 0 MG tablet mouth 2 (two) times daily before meals. Active metFORMIN (GLUCOPHAGE) Take 1,000 mg 0 1000 MG tablet by mouth 2 (two) times daily with breakfast and dinner. Active fenofibrate (TRICOR) 48 Take 48 mg by 0 MG tablet mouth daily. Active amLODIPine (NORVASC) 2.5 Take 2.5 mg 0 MG tablet by mouth every morning . Active metoprolol (TOPROL-XL) 50 Take 50 mg by 0 MG 24 hr tablet mouth every morning . Active losartan-hydrochlorothiaz Take 1 tablet 0 etta (HYZAAR) 100-25 mg by mouth per tablet every morning . Active traMADol (ULTRAM) 50 mg Take 50 mg by 0 tablet mouth every 6 (six) hours as needed for Pain. Active ibuprofen (ADVIL,MOTRIN) Take 600 mg 0 600 MG tablet by mouth every 6 (six) hours as needed for Pain. Active naproxen (NAPROSYN) 500 Take 500 mg 0 MG tablet by mouth 2 (two) times daily with breakfast and dinner. Active sertraline (ZOLOFT) 50 MG Take 50 mg by 0 tablet mouth daily. Active famotidine (PEPCID) 40 MG Take 40 mg by 0 tablet mouth daily. Active insulin glargine (LANTUS) Inject 85 0 100 unit/mL injection Units subcutaneousl y nightly Use as directed . Active omeprazole (PRILOSEC) 20 Take 20 mg by 0 MG capsule mouth daily. Active insulin NPH 100 unit/mL Inject 40 0 (3 mL) InPn Units subcutaneousl y 2 (two) times daily before meals 40 units Qam, 45 units Qpm . Active Problems Not on file Encounters Care Team Description Date Type Specialty Laura Tapia CRNA 10/26/2018 Anesthesia Event Louann Jo MD COLONOSCOPY,POLYPECTOMY 10/26/2018 Surgery Louann Jo MD 10/26/2018 [facility] Phone 10/18/2018 Hospital Pre-Admission Testing Encounter after 03/28/2018 Social History Date Tobacco Use Types Packs/Day Years Used Never Smoker Smokeless Tobacco: Never Used Alcohol Use Drinks/Week oz/Week Comments No Sex Assigned at Date Recorded Not on file Industry Job Start Date Occupation Not on file Not on file Not on file Travel End Travel History Travel Start No recent travel history available. Last Filed Vital Signs Time Taken Vital Sign Reading 10/26/2018 9:40 AM CDT Blood Pressure 126/65 10/26/2018 9:40 AM CDT Pulse 62 10/26/2018 9:15 AM CDT Temperature 36.4 C (97.6 F) 10/26/2018 9:40 AM CDT Respiratory Rate 14 10/26/2018 9:40 AM CDT Oxygen Saturation 94% - Inhaled Oxygen - Concentration 10/26/2018 7:00 AM CDT Weight 74.8 kg (165 lb) 10/26/2018 7:00 AM CDT Height 147.3 cm (4' 10") 10/26/2018 7:00 AM CDT Body Mass Index 34.49 Plan of Treatment Not on file Procedures Comments Procedure Name Priority Date/Time Associated Diagnosis REPORT OF PROCEDURE - 10/26/2018 ENDOSCOPY URL 9:18 AM CDT TISSUE EXAM AP Routine 10/26/2018 8:51 AM CDT COLONOSCOPY,POLYPECTOMY 10/26/2018 Occult blood positive 8:30 AM CDT stool POCT-GLUCOSE METER Routine 10/26/2018 7:37 AM CDT after 03/28/2018 Results * REPORT OF PROCEDURE - ENDOSCOPY URL (10/26/2018 9:18 AM CDT) Narrative Performed At * Tissue Exam (10/26/2018 8:51 AM CDT) Case Report Surgical Pathology [facility] Report [facility] Case: [id number] Authorizing Provider:Louann Jo MDCollecte d: 10/26/2018 0851 Ordering Location: [facility] ENDOSCOPY Received: 10/26/2018 1116 SERVICES Pathologist: Mickey Kimball MD Specimens: A) - Polyp, Colon - Right/Ascending, X2 B) - Polyp, Colon - Transverse C) - Polyp, Colon - Left/Descending DIAGNOSIS A. RIGHT ASCENDING COLON POLYP [facility] X2, BIOPSY [facility] - TUBULAR ADENOMA - COLONIC MUCOSA, BENIGN LYMPHOID AGGREGATE - NO HIGH-GRADE DYSPLASIA AND NO MALIGNANCY IDENTIFIED B. TRANSVERSE COLON POLYP, BIOPSY - TUBULAR ADENOMA - NO HIGH-GRADE DYSPLASIA AND NO MALIGNANCY IDENTIFIED C. LEFT DESCENDING COLON POLYP, BIOPSY - TUBULAR ADENOMA - NO HIGH-GRADE DYSPLASIA AND NO MALIGNANCY IDENTIFIED Signing Pathologist Direct Phone Line: [phone] CPT Code(s) 98063 x 3 [facility] CLINICAL HISTORY Occult blood positive stool [facility] SPECIMEN SOURCE A. Right ascending colon polyp [facility] x2. B. Transverse colon polyp. [facility] C. Left descending colon polyp GROSS DESCRIPTION Specimen is received in three [facility] containers of formalin [facility] labeled with the patient's information. Specimen A: Labeled "right ascending colon polyp x2" consists of three fragments of street tissue ranging from 0.2 to 0.4 cm, submitted in A1. Specimen B: Labeled "transverse colon polyp" consists of a 0.[address] polyp submitted entirely in B1. Specimen C: Labeled "left descending colon polyp" consists of a 0.[address] tissue submitted entirely in C1. CG/ew MICROSCOPIC DESCRIPTION A. Sections reveal a tubular [facility] adenoma with glands showing [facility] proliferation of adenomatous epithelium with nuclear stratification. Pieces of colonic mucosa are also seen with a benign lymphoid aggregate. The lamina propria has mildly increased acute and chronic inflammation. High-grade dysplasia and malignancy are not seen. B. Sections reveal a tubular adenoma with glands showing proliferation of adenomatous epithelium with nuclear stratification. The lamina propria has mildly increased acute and chronic inflammation. High-grade dysplasia and malignancy are not seen. C. Sections reveal a tubular adenoma with glands showing proliferation of adenomatous epithelium with nuclear stratification in one area. The lamina propria has mild chronic inflammation. High-grade dysplasia and malignancy are not seen. Specimen Tissue - Polyp, Colon - Right/Ascending Tissue - Polyp, Colon - Transverse Tissue - Polyp, Colon - Left/Descending Performing Organization Address [facility] Number [facility] [address] [place] [address] [facility] * POC-Glucose meter (10/26/2018 7:37 AM CDT) POC-Glucose Meter 201 (H)Comment: TESTED AT 70 - 110 mg/dL [facility] [address] [facility] [address] [facility] [id number] Specimen Blood Performing Organization Address City/[facility]/Zipcode Phone Number [facility] [address] [place] [address] [facility] after 03/28/2018 Insurance Payer Benefit Subscriber ID Type Phone Address Plan / Group JASS REGAN xxxxxxxxxxx SUPERIOR
[2019-03-29 20:51] LABS: BILIRUBIN,URINE NEGATIVE (NEGATIVE); CLARITY,URINE CLEAR (CLEAR); KETONES,URINE NEGATIVE (NEGATIVE); LEUKOCYTE ESTERASE ,URINE NEGATIVE (NEGATIVE); NITRITE,URINE NEGATIVE (NEGATIVE); PROTEIN,URINE DIPSTICK NEGATIVE (NEGATIVE); URINE UROBILINOGEN 0.2 mg/dL (0.2 - 1)
[2019-03-29 20:52] LABS: COLOR,URINE COLORLESS (YELLOW)
[2019-03-29 21:05] LABS: EPITHELIAL CELLS,URINE FEW /LPF
[2019-03-29 21:22] LABS: BASOPHILS % 0.3 % (0.0-1.0); EOSINOPHILS # (AUTO) 0.1 (0.0-0.4); EOSINOPHILS % 1.5 % (0.0-6.0); HEMATOCRIT 29.6 % (34.2-44.1); HEMOGLOBIN 9.4 g/dL (12.0-16.0); LYMPHOCYTES # (AUTO) 1.2 (1.0-3.2); MEAN CORPUSCULAR HEMOGLOBIN 28.6 pg (28-32); MEAN CORPUSCULAR HGB CONC 31.8 g/dL (31-35); MONOCYTES # (AUTO) 0.5 (0.2-0.8); MONOCYTES % 6.7 % (4.4-11.3); NEUTROPHILS # (AUTO) 5.3 (2.1-6.9); NEUTROPHILS % 73.7 % (38.7-80.0); PLATELET COUNT 272 x10e3/uL (140-360); RED BLOOD COUNT 3.29 x10e6/uL (3.6-5.1); RED CELL DISTRIBUTION WIDTH 15.4 % (11.7-14.4)
[2019-03-29 21:41] LABS: ALBUMIN 3.3 g/dL (3.5-5.0); ALBUMIN/GLOBULIN RATIO 0.9 (0.8-2.0); ANION GAP 13.5 mmol/L (8-16); CALCIUM 9.1 mg/dL (8.4-10.2); CREATININE, SERUM 1.35 mg/dL (0.57-1.11); POTASSIUM 4.5 mmol/L (3.5-5.1)
--- NOTE | 2019-03-29 22:12 | Diagnostic Imaging Report ---
EXAM: CT of the abdomen and pelvis WITHOUT contrast HISTORY: Back pain, stone protocol, left back pain, radiates to left lower quadrant, suprapubic pain, 5 days, burning with urination, frequency, nausea, history of hysterectomy COMPARISON: None available. TECHNIQUE: The abdomen and pelvis were scanned utilizing a multidetector helical scanner. Coronal and sagittal reformats are available. PROTOCOL: Renal colic IV CONTRAST: None, which limits sensitivity and specificity of evaluation of the soft tissues and vascular structures. ORAL CONTRAST: None, which limits sensitivity and specificity of evaluation of the bowel. RADIATION DOSE: Total DLP: 637.95 mGy*cm Estimated effective dose: (DLP x 0.015 x size factor) Dose modulation, iterative reconstruction, and/or weight based adjustment of the mA/kV was utilized to reduce the radiation dose to as low as reasonably achievable. COMPLICATIONS: None FINDINGS: LOWER THORAX: Unremarkable. HEPATOBILIARY: No definite focal hepatic lesions. No biliary ductal dilatation. The gallbladder is unremarkable. SPLEEN: No splenomegaly. PANCREAS: No focal masses or ductal dilatation. ADRENALS: No adrenal nodule. KIDNEYS/URETERS: No hydronephrosis, stones, or solid mass lesion identified. PELVIC ORGANS/BLADDER: The urinary bladder is decompressed, but even allowing for the decompression the wall appears diffusely thickened with adjacent fat stranding. PERITONEUM / RETROPERITONEUM: No free air or fluid. GI TRACT: On limited evaluation of the gastrointestinal tract, no dilation or wall thickening identified. The appendix appears normal. Moderate colonic fecal burden. Distal colonic diverticulosis, without evidence of acute diverticulitis. LYMPH NODES: No pathologically enlarged lymph nodes. Calcifications within the right lower quadrant the abdomen, likely calcified lymph nodes. VESSELS: Scattered atherosclerotic vascular calcifications, including the coronary arteries. BONES and JOINTS: No aggressive osseous lesion or acute fracture. SOFT TISSUES: Mild nonspecific ventral abdominal wall superficial soft tissue fat stranding. IMPRESSION: 1. Findings compatible with cystitis. 2. Colonic diverticulosis. 3. Coronary atherosclerosis. Signed by: Dr. Rocael Leung D.O., M.M.M. on 03/29/2019 10:09 PM
[2019-03-29 22:32] VITALS: BP 144/63
== END 2019-03-29 22:51 | disposition home or self-care (01) ==
LOC: ER 20:19
DX: R50.9 Fever, unspecified (principal); R11.0 Nausea; E11.9 Type 2 diabetes mellitus without complications; E78.5 Hyperlipidemia, unspecified; N30.90 Cystitis, unspecified without hematuria
CPT/HCPCS: 36415; 74176; 80053; 81001; 85025; 99284